=== PATIENT | female | born 1995 ===

== ENCOUNTER 2017-01-03 04:17 | Emergency (ER) | payer MEDICAID ==
[2017-01-03 04:41] VITALS: BP 109/67; PULSE 94; RESP 16; TEMP 98.6; O2SAT 96
[2017-01-03] MEDS ORDERED: Albuterol-Ipratrop 3 mg / 0.5 (3 ml) UD ONE (04:59)
[2017-01-03] MEDS: Albuterol-Ipratrop 3 mg / 0.5 (3 ml) UD INH STA ×3 (05:08)
--- NOTE | 2017-01-03 05:20 | ED PDOC ---
HPI: Asthma Time Seen by Provider: 01/03/17 04:40 Chief Complaint (Nursing): Chest Pain Chief Complaint (Provider): Shortness of breath History Per: Patient History/Exam Limitations: no limitations Onset/Duration Of Symptoms: Hrs (x6) Current Symptoms Are (Timing): Still Present Precipitating Factors: Allergies Additional Complaint(s): 21 year old female presets to ED with complaints of Shortness of breath x6 hours and has a past medical history of asthma. Notes worsening difficulty breathing and productive cough with green phlegm. (+) wheezing. Patient states that symptoms worsen when attempting to lay back and used her MDI with no relief. (-) fever, vomiting, diarrhea, or abdominal pain. Notes that she recently moved in with her mother who has a cat and that cat dander is a known trigger for her symptoms. PCP:[facility] Past Medical History Reviewed: Historical Data, Nursing Documentation, Vital Signs Vital Signs: Last Vital Signs Temp 98.6 F 01/03/17 04:39 Pulse 94 H 01/03/17 04:39 Resp 16 01/03/17 04:39 BP 109/67 01/03/17 04:39 Pulse Ox 96 01/03/17 04:39 - Medical History PMH: Asthma - Surgical History Surgical History: No Surg Hx - Family History Family History: States: Unknown Family Hx - Social History Current smoker - smoking cessation education provided: No Ex-Smoker (has not smoked in the last 12 months): No Alcohol: None Drugs: Denies - Home Medications Home Medications: Ambulatory Orders Medication Instructions Recorded Albuterol HFA [Ventolin HFA 90 2 puff IH [id number] #1 inhaler 08/01/14 mcg/actuation (8 g)] Cetirizine HCl [Zyrtec Allergy] 10 mg PO DAILY #30 tab 08/01/14 Fluticasone Propionate [Flonase] 2 actuation NS DAILY #1 spray 08/01/14 Prednisone 60 mg PO DAILY #12 tab 08/01/14 predniSONE [predniSONE Tab] 60 mg PO QAM #12 tab 01/03/17 - Allergies Allergies/Adverse Reactions: Allergies Allergy/AdvReac Type Severity Reaction Status Date / Time No Known Allergies Allergy Verified 01/03/17 04:38 Review of Systems ROS Statement: Except As Marked, All Systems Reviewed And Found Negative Constitutional: Negative for: Fever Respiratory: Positive for: Cough ((+) green phlegm), Shortness of Breath, Wheezing Gastrointestinal: Negative for: Vomiting, Abdominal Pain, Diarrhea Physical Exam - Reviewed Nursing Documentation Reviewed: Yes Vital Signs Reviewed: Yes - Physical Exam Appears: Positive for: No Acute Distress Skin: Positive for: Normal Color, Warm, Dry Eye Exam: Positive for: EOMI, Normal appearance, PERRL ENT: Positive for: Normal ENT Inspection Neck: Positive for: Normal, Painless ROM, Supple Cardiovascular/Chest: Positive for: Regular Rate, Rhythm. Negative for: Murmur Respiratory: Positive for: Decreased Breath Sounds (decreased air entry bilaterally), Wheezing (diffuse expiratory wheezing bilaterally). Negative for : Respiratory Distress Gastrointestinal/Abdominal: Positive for: Normal Exam Extremity: Positive for: Normal ROM. Negative for: Deformity Neurologic/Psych: Positive for: Alert, Oriented. Negative for: Motor/Sensory Deficits - ECG O2 Sat by Pulse Oximetry: 96 (RA) Pulse Ox Interpretation: Normal Medical Decision Making Medical Decision Makin Initial impression: asthma exacerbation in setting of URI and dander exposure Initial plan: * EKG * Upreg * Chest x-ray * Duonebs 3mL INH x3 * Prednisone 60mg PO * Peak flow pre/post Tx x3 * Re-eval 0558 Upon re-evaluation, patient notes improvement in symptoms. Chest x-ray: NAD Patient is stable for discharge home. Diagnosis: asthma exacerbation Condition: improved Scribe Attestation: Documented by Kourtney Causey acting as a scribe for Robi Kolb MD. Scribe Attestation: All medical record entries made by the Scribe were at my direction and personally dictated by me. I have reviewed the chart and agree that the record accurately reflects my personal performance of the history, physical exam, medical decision making, and the department course for this patient. I have also personally directed, reviewed, and agree with the discharge instructions and disposition. Disposition - Clinical Impression Clinical Impression: Asthma exacerbation - Disposition Referrals: Sylvia Chi MD [Primary Care Provider] - Disposition: Routine/Home Disposition Time: 06:00 Condition: IMPROVED Prescriptions: predniSONE [predniSONE Tab] 60 mg PO QAM #12 tab Instructions: Asthma (ED) Forms: [employer] ([place])
--- NOTE | 2017-01-03 08:52 | RAD ---
HISTORY: Cough COMPARISON: No prior. TECHNIQUE: Chest PA and lateral FINDINGS: LUNGS: No active pulmonary disease. PLEURA: No significant pleural effusion identified. No pneumothorax apparent. CARDIOVASCULAR: Normal. OSSEOUS STRUCTURES: No significant abnormalities. VISUALIZED UPPER ABDOMEN: Normal. OTHER FINDINGS: None. IMPRESSION: No active disease. Please note: No preliminary report/ innterpretation of this examination provided by emergency department personnel.
--- NOTE | 2017-01-04 01:12 | CARD ---
APPROVED REPORT EKG Measurement Heart [id number] <Conclusion> Normal sinus rhythm Possible Left atrial enlargement Borderline ECG
== END 2017-01-03 06:13 | disposition home or self-care (01) ==
LOC: H.ER 04:17
DX: J45.901 Unspecified asthma with (acute) exacerbation (principal)